=== PATIENT | male | born 1945 | race Caucasian/White ===

== ENCOUNTER 2018-09-05 16:45 | Inpatient (IN) | payer MEDICARE ==
[~2018-09-05] VITALS: Ht 172.7 cm; Wt 83.4 kg
[2018-09-05 17:00] LABS: Calcium, Ionized (POC) 1.15 mmol/L (1.10-1.46); Chloride (POC) 104 mmol/L (98-108); Creatinine (POC) 0.8 mg/dL (0.8-1.3); Glucose (ISTAT POC) 131 mg/dL (70-99); Hemoglobin (POC) 16.7 g/dL (13.5-17.5); Potassium (POC) 3.5 mmol/L (3.5-5.5); Sodium (POC) 142 mmol/L (135-148); Total CO2 (POC) 24 mmol/L (21-32)
[2018-09-05 17:09] LABS: Hematocrit 48.5 % (37.0-53.0); Hemoglobin 16.4 g/dL (13.5-17.5); Mean Corpuscular HGB 32.9 pg (26.0-34.0); Mean Corpuscular HGB Conc 33.8 g/dL (31.5-36.5); Mean Corpuscular Volume 97 fL (80-100); Mean Platelet Volume 10.7 fL (9.1-12.4); Platelet Count 329 K/mm3 (150-400); RDW Coefficient Variation 13.4 % (11.7-14.2); RDW Standard Deviation 47.9 fL (35.1-46.3); Red Blood Cell Count 4.99 M/mm3 (4.30-5.90)
[2018-09-05] MEDS ORDERED: ATOR10 PO (17:11)
[2018-09-05 17:25] LABS: International Normalized Ratio 1.09; Prothrombin Time Results 11.5 Sec (9.7-11.5)
[2018-09-05 17:27] LABS: Anion Gap 6 mmol/L (6-16); Blood Urea Nitrogen 18 mg/dL (8-24); Bun/Creatinine Ratio 24.2 (12.0-20.0); CHOL/HDL RATIO 5.2; CO2, Blood 28 mmol/L (21-32); CPK Creatine Kinase 62 U/L (39-308); Calcium, Blood 8.9 mg/dL (8.5-10.1); Chloride, Blood 107 mmol/L (98-108); Cholesterol 166 mg/dL (50-200); Creatine Kinase MB 1.8 ng/mL (0.0-3.6); Creatine Kinase MB Index 2.9 (0.0-4.0); Creatinine, Blood 0.74 mg/dL (0.60-1.20); Glomerular Filtration Rate >60 (60-); Glucose, Blood 130 mg/dL (70-99); HDL Cholesterol 32 mg/dL (>39); LDL/HDL RATIO 2.9; Low Density Lipoprotein Chol 92 mg/dL (0-110); Magnesium, Blood 2.3 mg/dL (1.6-2.4); Potassium, Blood 3.5 mmol/L (3.5-5.5); Sodium, Blood 141 mmol/L (136-145); Triglycerides 209 mg/dL (30-160); Troponin I 0.058 ng/mL (0.000-0.040); Very Low Density Lipoprot Chol 41 mg/dL (6-32)
[2018-09-05] MEDS ORDERED: ASPI325EC PO (17:38)
--- NOTE | 2018-09-05 20:45 | NUR ---
PCU ADMIT PT BROUGHT TO PCU 12 FROM THE ER BY HENRIK @ APPROX 2029. PT A&O X4, ABLE TO INDEPENDENTLY TRANSFER FROM [facility] TO PCU BED. PT LUNG SOUNDS CLEAR T/O, SPO2 > 92% ON RA. MONITOR SHOWS NSR, HR 60'S. PT DENIES PAIN OF ANY KIND. AT BEDSIDE. WILL CONTINUE TO MONITOR AND PROVIDE CARE.
[2018-09-06 04:12] LABS: Source, Urine Clean Catch
[2018-09-06 04:14] LABS: Bilirubin, Urine Neg (Neg); Blood, Urine 2+ (Neg); Glucose Qualitative, Urine Neg (Neg); Ketones, Urine Neg (Neg); Leukocyte Esterase, Urine 3+ (Neg); Nitrite, Urine Pos (Neg); Protein, Urine 1+ (Neg); Urobilinogen, Urine NORM (Normal)
[2018-09-06 04:18] LABS: Appearance, Urine Cloudy (Clear); Color, Urine Yellow (P-Yellow)
[2018-09-06 04:22] LABS: White Blood Cells, Urine 50-100 /hpf (0-5)
[2018-09-06 04:23] LABS: Bacteria Many /hpf; Red Blood Cells, Urine 0-2 /hpf (0-2); Squamous Epithelial Cells Not Seen /hpf (Few)
[2018-09-06 05:09] LABS: Hematocrit 47.8 % (37.0-53.0); Hemoglobin 15.9 g/dL (13.5-17.5); Mean Corpuscular HGB 32.1 pg (26.0-34.0); Mean Corpuscular HGB Conc 33.3 g/dL (31.5-36.5); Mean Corpuscular Volume 97 fL (80-100); Mean Platelet Volume 10.6 fL (9.1-12.4); Platelet Count 306 K/mm3 (150-400); RDW Coefficient Variation 13.3 % (11.7-14.2); RDW Standard Deviation 47.7 fL (35.1-46.3); Red Blood Cell Count 4.95 M/mm3 (4.30-5.90); White Blood Cell Count 11.12 K/mm3 (4.00-11.30)
[2018-09-06 05:38] LABS: Alanine Aminotransfer (ALT/SGP 22 U/L (12-78); Albumin, Blood 3.2 g/dL (3.4-5.0); Alk Phos 50 U/L (50-136); Anion Gap 10 mmol/L (6-16); Aspartate Aminotrans (AST/SGOT 17 U/L (12-37); Bilirubin, Total 0.6 mg/dL (0.1-1.0); Blood Urea Nitrogen 14 mg/dL (8-24); Bun/Creatinine Ratio 22.2 (12.0-20.0); CHOL/HDL RATIO 3.7; CO2, Blood 22 mmol/L (21-32); Calcium, Blood 8.3 mg/dL (8.5-10.1); Chloride, Blood 111 mmol/L (98-108); Cholesterol 151 mg/dL (50-200); Creatinine, Blood 0.63 mg/dL (0.60-1.20); Globulin, Blood 3.1 g/dL (2.2-4.0); Glomerular Filtration Rate >60 (60-); Glucose, Blood 148 mg/dL (70-99); HDL Cholesterol 41 mg/dL (>39); LDL/HDL RATIO 2.3; Low Density Lipoprotein Chol 93 mg/dL (0-110); Potassium, Blood 3.7 mmol/L (3.5-5.5); Sodium, Blood 143 mmol/L (136-145); Total Protein, Blood 6.3 g/dL (6.4-8.2); Triglycerides 85 mg/dL (30-160); Very Low Density Lipoprot Chol 17 mg/dL (6-32)
[2018-09-06 05:51] LABS: CPK Creatine Kinase 84 U/L (39-308); Creatine Kinase MB 6.6 ng/mL (0.0-3.6); Creatine Kinase MB Index 7.9 (0.0-4.0)
--- NOTE | 2018-09-06 06:24 | NUR ---
SHIFT SUMMARY PT A&O X4, INDEPENDENT IN ROOM. NO C/O CP. TROPONIN VALUE CALLED TO MD CROW @ APPROX 0600 THIS AM W/ NO NEW ORDERS. HEPARIN GTT INFUSING PER ORDERS. CARDIOLOGY TO SEE PT. WILL CONTINUE TO MONITOR AND PROVIDE CARE UNTIL REPORT OFF TO DAY SHIFT RN.
--- NOTE | 2018-09-06 11:33 | NUR ---
PATIENT PERMISSION PATIENT GAVE PERMISSION FOR ME TO CARE FOR HIM TODAY 09/06/18
--- NOTE | 2018-09-06 11:56 | NUR ---
Spiritual care/advance directive education visit conducted. Patient and spouse Lucia were present in patient's room when I entered patient's room. Patient and Lucia recounted the events that led to the hospitalization and their current emotional state. I listened empathically, explored patient's spiritual beliefs, provided companionship and emotional support. I also provided advance care education that consisted of going over the sections of the handbook, informing them of the process of what to do with the information once the paperwork is complete and reviewing the importance of having the information in the medical record. Patient and Lucia seemed genuinely grateful for the education and stated that they were planning on filling out an advance directive before this medical event happened. They took the advance directive booklet and said they would work through it, notarize it and had it in to their PCP.
--- NOTE | 2018-09-06 13:34 | NUR ---
THE [facility] ATTENDANT IS ON THE WAY TO HIM NOW FOR A TROPONIN AND A PTT. THE LAST [facility] ATTENDANT COULD NOT GET HIS BLOOD. HE HAS BEEN SYMPTOM FREE ALL DAY. JUST ROUNDED. THE TOOL REPAIR TECHNICIAN WAS IN EARLIER THIS MORNING. HE IS UP AD LONI IN ROOM. HEPARIN DRIP ONGOING. HE IS NOT ON ANTIHYPERTENSIVES AT HOME BUT HAS BEEN STARTED ON 2 HERE. HIS IS AT THE BEDSIDE.
--- NOTE | 2018-09-06 18:33 | NUR ---
HE IS COMFORTABLE WITHOUT CP ALL DAY. NO OTHER COMPLAINTS EITHER. HIS ECHO WAS DONE. CARDILOGIST CONSULTED WITH HIM. TROP LEVEL COMING DOWN. HEPARIN INFUSION RATE INCREASED SLIGHTLY. TEDS ON BILAT. AT BEDSIDE A LOT OF THE DAY.
--- NOTE | 2018-09-06 23:35 | NUR ---
PHARMACIST CALLED AND NOTIFIED OF APTT LAB RESULTS.
--- NOTE | 2018-09-06 23:45 | NUR ---
HEPARIN GTT PHARMACIST IDALIA ALEX STATES SCAY TO LEAVE HEPARIN GTT AT CURRENT RATE 23.2 ML/HR. APPT 70.6 AT 22:58.
--- NOTE | 2018-09-07 00:47 | NUR ---
PHARMACIST IDALIA BANGURA STATES HE WILL PUTT IN THE TIME FOR THE NEXT APTT DRAW. LAB ORDER NOT IN AT THIS TIME.
--- NOTE | 2018-09-07 04:01 | NUR ---
HYPOTENSION PT HAD A EPISODE OF ORTHOSTATIC HYPOTENSION WHEN GETTING UP TO THE BATHROOM. HE REPORTED TO THE AID THAT HE DID NOT FEEL RIGHT. THAT HE FELT NAUSEOUS. I WENT IN TO ASSESS PT. HE DENIED ANY CHEST PAIN. BUT STATED THAT HE FELT LIGHT HEADED. I TOOK PT BP WHILE HE WAS SITTING UP AT THE SIDE OF THE BED AND IT WAS 83/43. I WAITED A FEW MINUTES AND HAD PT LAY DOWN. BP WAS THEN 111/59. HE THEN REPORTED THAT HE WAS FEELING BETTER, AND CONTINUED TO DENY ANY PAIN ASIDE FROM A MILD HEADACHE 3 (0-10). DR. CROW CALLED AND NOTIFIED OF PT EPISODE OF HYPOTENSION AND ACCOMPANYING SYMPTOMS, AND THAT BP RECOVRED AFTER LAYING DOWN. STATES "THATS OK', AND THERE WERE NO ADDITIONAL ORDERS GIVEN. NPO PT FOOD WAS TAKEN AWAY MIDNIGHT. I CAME BACK INTO ROOM AROUND 0300 TO FIND HIS PAITENT CUP OF WATER SITTING ON BEDSIDE TABLE. HE REPORTS THAT HE WAS BEEN SIPPING WATER OFF AND ON SINCE MIDNIGHT. HE STATED THAT THE COMPUTER SYSTEMS SOFTWARE ARCHITECT TOLD HIM IT WAS OK FOR HIM TO HAVE SIPS OF WATER AFTER MIDNIGHT. DR. CROW NOTIFED OF THIS WELL. HE STATES THATS OK. HE SAYS WITH ANGIO OR STENT PLACEMENT THAT NPO FOUR HOURS PRIOR TO PROCEDURE IS ALL THAT IS NECESSARY. AND THAT HE CAN HAVE WATER AND MEDS, UP UNTIL FOUR HOURS PRIOR TO PROCEDURE.
--- NOTE | 2018-09-07 05:13 | NUR ---
SHIFT SUMMARY PT SLEPT FOR MOST OF THE NIGHT AND HAD NO COMPLAINTS. HOWEVER, AROUND 0300 WHEN PT WAS ATTEMPTING TO AMBULATE TO THE BATHROOM, HE HAD A MOMENT OF ORTHOSTATIC HYPOTENSION. SEE NURSES NOTES. MADE AWARE. HYPOTENSION RESOLVED. PT HAS NEWLY BEEN TAKING METOPROLOL. EDUCATED PT ON RISING SLOWLY UPON WAKING TO PREVENT HUPOTENSION. PT HAS DENIED CHEST PAIN T/O THE NIGHT. PT TO HAVE ANGIO OR STENT PLACEMENT TODAY. PT REPORTS THAT HE HAS BEEN TAKING SIPS OF WATER SINCE MIDNIGHT, BUT HAS NOT HAD ANY FOOD. HE STATED THAT THE MIGNON SAID IT WAS OK FOR HIM TO HAVE WATER. DR. CROW NOTIFIED. SEE NURSES NOTES. WILL MAKE DAY RN AWARE. HEPARIN GTT INFUSING ORDERED. NO OTHER CHANGES TO REPORT. WILL CONTINUE TO MONITOR AND REPORT TO ONCOMING RN.
--- NOTE | 2018-09-07 06:24 | NUR ---
HEPARIN GTT PHARMACIST MADE AWARE OF HEPARIN RESULTS THIS AM. PHARMACIST TO ADJIST.
--- NOTE | 2018-09-07 07:15 | NUR ---
PT PLEASATN DENIES PAIN, PRESSURE, OR DISCOMFORT SINCE ADMIT. PT A/O. WAITING ANGIO LOUISA THIS AM. H/R REG, NO MURMER NOTED. PER TELE: NSR AT 71, LUNGS CLEAR, RESP EASY, UNLABORED. ON R/A. BT X4 LAST BM YEST PER PT. VOIDS PER URINAL. MUST STAND TO URINATE. INDEPENDANT IN ROOM. BED IN LOW POASITION, CALL LITE IN REACH, CALLS APROP
--- NOTE | 2018-09-07 07:17 | NUR ---
CLOTH PATTERN MAKER AWARE THAT PT HAD SIPS OF WATER PAST MIDNIGHT. HE STATES THATS OK. PT TO GO FOR ANGIO GRAM THIS AM.
--- NOTE | 2018-09-07 07:36 | NUR ---
TO ANGIO AT 7000
--- NOTE | 2018-09-07 10:18 | NUR ---
PT BP 88/ ORDERS FOR 500 BOLUS GIVEN. PT ASYMPTOMATIC. DENIES PAIN. RADIAL SITE. CDI. A LITTLE OLD BLOOD. NOTED. NO HEMATOMA, NO BLEEDING. NO SWELLING OR BRUIDING NOTED. PT DENEIS PIAN OR NUMBNESES IN FINGERS. FINGER O2 PROB ROTATING ON RT HAND FINGERS. CAP REFIL WNL.
--- NOTE | 2018-09-07 11:18 | NUR ---
CALLED DR EZEQUIEL FRY BP. ORDERS FOR ADDL 1000 FLUID OKAY STOP WHEN BP >100
--- NOTE | 2018-09-07 11:18 | NUR ---
MICHELLE METOPROLOL PER DR NIEVES.
[2018-09-07 12:11] LABS: Hematocrit 42.2 % (37.0-53.0); Hemoglobin 14.3 g/dL (13.5-17.5)
--- NOTE | 2018-09-07 12:39 | NUR ---
BP STABLE >120/. TR BAND CDI. NO LEAKING NOTED. NO BLEEDING, TENDERNESS. O2 >90%. NO HEMATOMA NOTED. CONTINUE TO MONITOR. PT STATES NO N/T OR LACK OF FEELING.
--- NOTE | 2018-09-07 15:44 | NUR ---
Spiritual care visit conducted. Because therapeutic alliance is already established from a prior visit Patient and Lucia openly shared about how the surgery went earlier in the day and the emotions that surrounded the event. We discussed everything from and dying to the importance of how we respond to what we have been given. Patient and Lucia were warm and kind and spoke very highly of their experience with the doctors and the PCU staff. They could not say enough words of praise regarding how they were treated, the professionaliism and excellence in which care was delivered and the over all "spirit" of the entire staff as they listened to how they work together as a team. Patient and Lucia also complimented me on the care I delivered even though they (patient and Lucia) do not sibscribe to any restorationism. They expressed graitude for my visit.
--- NOTE | 2018-09-07 17:49 | NUR ---
PT QUITE PLEASANT TODAY. DENIES PAIN. TR BAND NEARLY DEFLATED. PT MONITORING MOVEMENT CAREFULLY. AT BEDSIDE. PT IN GOOD HUMOR. NO OTHER CONCERNA AT THIS TIME. PT AMBULATED TO BATHROOM. INDEPENDANT. FOLLOWING INST. WELL. NO OTHER CONCERNS/ BED IN LOW POSITION, CALL LITE IN REACH, CALLS APPROP
--- NOTE | 2018-09-07 20:08 | NUR ---
PM NOTE. ASSUMED CARE OF PT APROX 1900, PT IS A&Ox4 AND IND IN THE ROOM. PT WAS ADMITTED DUE TO [place], PT HAD STENT PLACED IN HIS LAD DURING ANGIO TODAY. PT DENIES ANY CHEST PAIN/PRESSURE, N/V OR SOB. TELE INTACT, NSR IN THE 90'S PER GROUNDS SUPERVISOR, PT'S BP 150/86, NO EDEMA NOTED ON ASSESSMENT. L/S CLEAR T/O, PT IS 95% ON RA. BT PRESENT AND HYPERACTIVE, ABD IS SOFT AND NONTENDER TO PALP. RIGHT WRIST SITE IS C/D/I, TR BAND WAS REMOVED, SMALL HEMATOMA NOTED PROXIMAL AND LATERAL TO THE SITE. AREA WAS CLEANED OF SMALL AMOUNT OF DRY BLOOD AND TEGADERM WAS PLACED. ARM BOARD WAS SECURED TO ENSURE PROPER USE OF THE ARM DURING HEALING. CALL LIGHT IN REACH, BED IS LOCKED AND LOW WILL CONTINUE TO MONITOR.
[2018-09-08 04:01] LABS: Hematocrit 40.4 % (37.0-53.0); Hemoglobin 13.7 g/dL (13.5-17.5); Mean Corpuscular HGB 33.2 pg (26.0-34.0); Mean Corpuscular HGB Conc 33.9 g/dL (31.5-36.5); Mean Corpuscular Volume 98 fL (80-100); Mean Platelet Volume 10.5 fL (9.1-12.4); Platelet Count 251 K/mm3 (150-400); RDW Coefficient Variation 13.6 % (11.7-14.2); RDW Standard Deviation 49.8 fL (35.1-46.3); Red Blood Cell Count 4.13 M/mm3 (4.30-5.90); White Blood Cell Count 9.05 K/mm3 (4.00-11.30)
[2018-09-08 04:25] LABS: Anion Gap 5 mmol/L (6-16); Blood Urea Nitrogen 12 mg/dL (8-24); Bun/Creatinine Ratio 19.1 (12.0-20.0); CO2, Blood 25 mmol/L (21-32); Calcium, Blood 8.1 mg/dL (8.5-10.1); Chloride, Blood 111 mmol/L (98-108); Creatinine, Blood 0.63 mg/dL (0.60-1.20); Glomerular Filtration Rate >60 (60-); Glucose, Blood 127 mg/dL (70-99); Potassium, Blood 3.6 mmol/L (3.5-5.5); Sodium, Blood 141 mmol/L (136-145)
--- NOTE | 2018-09-08 06:29 | NUR ---
SHIFT SUMMARY. NO ACUTE CHANGES NOTED THIS SHIFT. PT'S VS HAVE BEEN STABLE. PT DENIES ANY CHEST PAIN/PRESSURE, N/V OR SOB. PT'S RIGHT WRIST SITE IS C/D/I, THE SMALL HEMATOMA IS GONE, SLIGHT BRUSING IS PRESENT TO THE SURROUNDING AREA. RADIAL PULSE IS STRONG, FINGERS AND HAND ARE PINK, WARM AND DRY W/GOOD CAP REFILL OF <3 SECONDS. CALL LIGHT IN REACH, BED IS LOCKED AND LOW WILL COTNINUE TO MONITOR UNTIL REPORT IS GIVEN TO ONCOMING RN.
[2018-09-08] MEDS ORDERED: ACET325 PO (10:32)
[2018-09-08] MEDS ORDERED: CLOP75 PO (10:33)
[2018-09-08] MEDS ORDERED: Lopressor 25 mg25 MG PO (10:34)
[2018-09-08] MEDS ORDERED: Bactrim Ds Tab1 EACH PO (10:35)
--- NOTE | 2018-09-08 12:02 | NUR ---
Discharge: Assumed care of pt at approx 0700 this AM. VSS. In no apparent sign of distress. Pt is A&Ox4. Calls appropriatley and is independent in the room. Pt compliant with R wrist activity restrictions. Denies any pain or CP. See shift assessment for detailed assessment. Provided pt with education on all new medications, general discharge education, plavix/ASA contract and education on how to care for R radial access site. Pt demonstrates knowledge of education provided. Discharged with all belongings in hand, and accompanied by . Pt discharge at approx 1145. Denies any further questions, complaints or requests at time of discharge. Pt provided with stent card at time of discharge as well.
== END 2018-09-08 11:58 | disposition home or self-care (01) | DRG 247 ==
LOC: ER 16:45 → ERHOLD 18:41 → PCU 18:41
PROVIDERS: Emergency Medicine; Internal Medicine; ADMIT Internal Medicine
PROC: 027034Z Dilation of Coronary Artery, One Artery with Drug-eluting Intraluminal Device, Percutaneous Approach (ICD-10-PCS; principal; 2018-09-07)
PROC: 4A023N7 Measurement of Cardiac Sampling and Pressure, Left Heart, Percutaneous Approach (ICD-10-PCS; 2018-09-07)
PROC: B2111ZZ Fluoroscopy of Multiple Coronary Arteries using Low Osmolar Contrast (ICD-10-PCS; 2018-09-07)
DX: I21.3 ST elevation (STEMI) myocardial infarction of unspecified site (principal); N39.0 Urinary tract infection, site not specified; I25.110 Atherosclerotic heart disease of native coronary artery with unstable angina pectoris; Z90.79 Acquired absence of other genital organ(s); E78.5 Hyperlipidemia, unspecified; I10 Essential (primary) hypertension; N40.0 Benign prostatic hyperplasia without lower urinary tract symptoms; Z79.82 Long term (current) use of aspirin; E11.65 Type 2 diabetes mellitus with hyperglycemia
CPT/HCPCS: 36415; 71045; 80047; 80048; 80053; 80061; 81001; 82550; 82553; 83036; 83605; 83735; 84484; 85014; 85018; 85027; 85347; 85379; 85610; 85730; 86850; 86900; 86901; 87077; 87086; 87186; 93005; 93010; 93306; 93458; 96374; 96375; 99152; 99153; 99285-25; C1725; C1769; C1874; C1887; C1894; C9600; J0696; J1644; J2250; J3010; J7030; J7040; Q9967